=== PATIENT | male | born 1940 | race Caucasian/White ===

== ENCOUNTER → 2018-09-26 08:48 | Outpatient (CLI) | payer MEDICARE, BC ==
--- NOTE | 2018-10-01 13:33 | EC ---
PATIENT:TMAEKA CHAMBERS DATE OF SERVICE: 09/26/18 SEX: M MEDICAL RECORD: [id number] DATE OF : 44 LOCATION:[facility] AGE OF PATIENT: 77 ADMISSION DATE: 09/26/18 REFERRING PHYSICIAN: INTERPRETING PHYSICIAN: FABIANO ADAMES MD ECHOCARDIOGRAM REPORT ECHO CHARGES 4 ECHO COMPLETE Date: 09/26/18 CLINICAL DIAGNOSIS: H/O HTN ECHOCARDIOGRAPHIC MEASUREMENTS (adult normal given) AC root (d.<3.7cm) 3.3 cm LV Septum d (<1.2 cm> 1.5 cm Valve Excursion 0.6 cm LV Septum (systole) 1.9 cm Left Atria (s.<4.0cm> 4.3 cm LVPW d(<1.2cm) 1.2 cm RV (d.<2.3cm) 2.5 cm LVPW (sytole) 2.1 cm LV diastole(<5.6CM) 5.1 cm MV E-F(>70mm/sec) cm LV systole 2.5 cm LVOT Diameter 1.6 cm MV exc.(>10mm) cm Est.ejection fraction (50-75%) % DOPPLER: LVIT cm/sec A 108 cm/sec E 119 cm/sec LA cm/sec RVSP 46.0 mmHg LVOT 68.0 cm/sec AOP1/2T m/s Asc. Ao 324 cm/sec RVOT 67.0 cm/sec RA cm/sec PA 154 cm/sec AV Gradient Peak 42.0 mmHg AV Mean 23.0 mmHg AV Area 0.5 cm MV Gradient Peak 6.4 mmHg MV Mean 2.6 mmHg MV Area cm COMMENTS: OP - HC Agent Telegrapher: 1 JACOBY GILBERTOE Supervisor Transferring And Boxing: 3 Dr. Amador TAPE# PACS Pericardial Effusion N DATE OF SERVICE: Adequate 2D, color flow, spectral Doppler, and M-Mode. LVH is present. LV internal dimension is normal. Wall motion is normal. EF is greater than or equal to 55%. Aortic valve is calcified with restriction of leaflet motion. Calculated aortic valve area of 0.5 cm-squared putting this in the severe range. The left atrium is normal. Mitral valve shows no prolapse. Mild MR. Right-sided chambers grossly normal. Mild TR. TRANSINT:[id number] Voice Confirmation ID: [id number] DOCUMENT ID: [id number] ECHOCARDIOGRAM REPORT [id number] TAMEKA CHAMBERS,FABIANO Alvarez MD at 1333 CC: [id number] DICTATION DATE: 09/29/18 1307 ASSEMBLER LEATHER GOODS: 09/29/18 1412 DEP CLI 09/26/18 [place] [id number] [place] [id number]
== END | disposition home or self-care (01) ==
LOC: D.HCCARDIO 08:48
PROVIDERS: ATTEND Internal Medicine Interventional Cardiology
DX: I35.0 Nonrheumatic aortic (valve) stenosis (principal)

== ENCOUNTER → 2019-10-02 10:22 | Outpatient (CLI) | payer MEDICARE ==
--- NOTE | 2019-10-06 08:35 | EC ---
PATIENT:TAMEKA CHAMBERS DATE OF SERVICE: 10/02/19 SEX: M MEDICAL RECORD: [id number] DATE OF : 44 [facility] AGE OF PATIENT: 78 ADMISSION DATE: 10/02/19 REFERRING PHYSICIAN: INTERPRETING PHYSICIAN: FABIANO ADAMES MD ECHOCARDIOGRAM REPORT ECHO CHARGES 4 ECHO COMPLETE Date: 10/02/19 CLINICAL DIAGNOSIS: A-FIB/ H/O HTN ECHOCARDIOGRAPHIC MEASUREMENTS (adult normal given) AC root (d.<3.7cm) 3.0 cm LV Septum d (<1.2 cm> 1.5 cm Valve Excursion 0.5 cm LV Septum (systole) 1.8 cm Left Atria (s.<4.0cm> 4.5 cm LVPW d(<1.2cm) 1.4 cm RV (d.<2.3cm) 3.1 cm LVPW (sytole) 2.0 cm LV diastole(<5.6CM) 5.1 cm MV E-F(>70mm/sec) cm LV systole 2.8 cm LVOT Diameter 1.8 cm MV exc.(>10mm) cm Est.ejection fraction (50-75%) % DOPPLER: LVIT cm/sec A 111 cm/sec E 125 cm/sec LA cm/sec RVSP 47.0 mmHg LVOT 103 cm/sec AOP1/2T m/s Asc. Ao 442 cm/sec RVOT 66.0 cm/sec RA cm/sec PA 126 cm/sec AV Gradient Peak 78.2 mmHg AV Mean 42.0 mmHg AV Area 0.5 cm MV Gradient Peak 7.9 mmHg MV Mean 2.5 mmHg MV Area cm COMMENTS: OP - HC Marine Resource Economist: 1 JACOBY GILBERTOE Canteen Operator: 3 Dr. Amador TAPE# PACS Pericardial Effusion N DATE OF SERVICE: Adequate 2D, color flow imaging, spectral Doppler, and M-Mode. LVH is present. LV internal dimension is normal. Wall motion is normal. EF is greater than or equal to 55%. Aortic valve is calcified with restriction of leaflet motion. Peak gradient of almost 80 mmHg putting this in severe range. There is trivial AI with flow imaging. Left atrium is mildly dilated at 4.5 cm. Mitral valve shows no prolapse. Moderate MR. Right-sided chamber is grossly normal. Kxsh-to-fcokoabl TR. ECHOCARDIOGRAM REPORT [id number] TAMEKA CHAMBERS TRANSINT:[id number] Voice Confirmation ID: [id number] DOCUMENT ID: [id number] FABIANO ADAMES MD at 0835 CC: [id number] DICTATION DATE: 10/05/19 0843 POLISHER AND BUFFER: 10/05/19 1723 DEP CLI 10/02/19 [place] [id number] [place] [id number]
== END | disposition home or self-care (01) ==
LOC: D.HCCECHO 10:22
PROVIDERS: ATTEND Internal Medicine Interventional Cardiology
DX: I35.0 Nonrheumatic aortic (valve) stenosis (principal)

== ENCOUNTER 2019-12-17 11:35 | Outpatient (CLI) | payer MEDICARE ==
[~2019-12-17] VITALS: Ht 198.1 cm; Wt 90.5 kg
--- NOTE | ~2019-12-17 | HEMODYNAMI ---
PATIENT:TAMEKA CHAMBERS MEDICAL RECORD: [id number] : 44 LOCATION:D.CAT ADMISSION DATE: 12/17/19 Generatedon:12/17/201914:59 Patient name: TAMEKA CHAMBERS Patient #: [id number] SSN: [id number] : 1940 Date of study: 12/17/2019 Page: Of Hemodynamic Procedure Report Patient Data Patient Demographics First Name: TAMEKA Gender: Male Last Name: TRISH : 1940 Middle Initial: L Age: 79 year(s) Patient #: [id number] Race: Unknown SSN: [id number] Additional ID: [id number] Contact details Address: [place] [address] State: [place] City: [place] Zip code: [address] Past Medical History Allergies Allergen Reaction Date Comments Reported Other allergy 12/17/2019 pcn Admission Admission Data Admission Date: 12/17/2019 Admission Time: 11:35 Arrival Date: 12/17/2019 Arrival Time: 0:00 Insurance Payor: Medicare Height (in.): 77.95 BSA: 2.25 (m2) Height (cm.): 198 BMI: 22.96 (kg/m2) Weight (lbs.): 198.42 Weight (kg.): 90 Lab Results Lab Result Date: 12/17/2019 Lab Result Time: 0:00 Biochemistry Name Units Result Min Max BUN mg/dl 32 --(----)-* 7 18 Creatinine mg/dl 2.1 --(----)-* 0.6 1.3 CBC Name Units Result Min Max Hemoglobin g/dl 14.3 --(*---)-- 13.5 17.5 Procedure Procedure Types Cath Procedure Diagnostic Procedure [facility] w/Coronaries Sedation Charges Moderate Sedation up to 15 minutes Procedure Description Procedure Date Procedure Date: 12/17/2019 Procedure Start Time: 14:36 Procedure End Time: 14:56 Procedure Staff Name Function Jonny Tran MD Performing Physician Chanel Medrano RT Monitor Navin Gutierrez RN Nurse Juli Brar RT Scrub Procedure Data Cath Procedure Fluoroscopy Diagnostic fluoroscopy Total fluoroscopy Time: 5.6 time: 5.6 min min Diagnostic fluoroscopy Total fluoroscopy dose: 522 dose: 522 mGy mGy Contrast Material Contrast Material Type Amount (ml) Isovue 300 67 Entry Location Entry Primary Successful Side Size Upsize Upsize Entry Closure Campbell ccessful Closure Location (Fr) 1 (Fr) 2 (Fr) Remarks Device Remarks Radial Right 6 Fr Mechanical artery Short Compression Estimated blood loss: 10 ml Diagnostic catheters Device Type Used For End Catheter Placement DIAGNOSTIC Mohall 110cm 5 Procedure Fr catheter ([id number]) DIAGNOSTIC AR MOD 5Fr Procedure Catheter ([id number]) Procedure Complications No complications Procedure Medications Medication Administration Route Dosage Oxygen etCO2 Nasal cannula 2 l/min Lidocaine 2% added to field 20 Heparin Flush Bag added to field 2 bags (1000units/500ml NS) 0.9% NaCl I.V. 100 ml/hr Versed I.V. 1 mg Fentanyl I.V. 50 mcg Versed I.V. 1 mg Fentanyl I.V. 50 mcg Hemodynamics Rest BSA: 2.25 (m2) HGB: 14.3 (g/dl) O2 Consumption: Estimated: 239.78 (ml/min) O2 Co nsumption indexed: Estimated:106.57 (ml/min/m) Heart Rate: 49 (bpm) Pressure Samples Time Site Value (mmHg) Purpose Heart Use Rate(bpm) 14:52 LV 181/-3,9 Snapshot 45 14:53 AO 142/36(72) Pullback 48 14:53 LV 177/0,9 Pullback 48 Gradients Valve Time Site 1 Site 2 Mean SEP/DFP Peak To Heart Use (mmHg) (sec/min) Peak Rate (mmHg) (bpm) Aortic 14:53 LV AO 57 17 35 48 177/0,9 142/36(72) Calculations Valve P-P Mean Valve Index Valve Source Name Gradient Area Flow (cm2) Aortic 35 57 35 57 Snapshots Pre Cath Intra NCS Post Cath Vital Signs Time Heart Resp SPO2 etCO2 NIBP (mmHg) Rhythm Pain Sedation Rate (ipm) (%) (mmHg) Status Level (bpm) 14:24:19 98 13 98 35.9 160/79(127) NSR 0 (11) 10(A) , No pain 14:28:49 50 17 96 26.1 155/67(121) NSR 0 (11) 10(A) , No pain 14:33:15 48 14 98 1.4 145/67(118) NSR 0 (11) 10(A) , No pain 14:37:41 46 14 94 38.1 143/68(117) NSR 0 (11) 9(A) , No pain 14:42:06 45 13 98 30.7 147/66(114) NSR 0 (11) 9(A) , No pain 14:46:36 45 14 97 38.9 114/57(90) NSR 0 (11) 9(A) , No pain 14:51:47 44 13 97 36.6 123/58(103) NSR 0 (11) 9(A) , No pain 14:56:07 44 14 97 41.1 132/58(104) NSR 0 (11) 10(A) , No pain Medications Time Medication Route Dose Verified Delivered Reason Notes Eff ectiveness by by 14:23:21 Oxygen etCO2 2 Jonny Buffie used for Nasal l/min St Jason Gutierrez RN procedure cannula 14:23:30 Lidocaine 2% added 20ml Jonyn Jonny for local to vial [facility] anesthetic field MD SUE 14:23:36 Heparin Flush added 2 Jonny Jonny used for Bag to bags [facility] procedure (1000units/500ml field MD SUE NS) 14:23:46 0.9% NaCl I.V. 100 Jonny Buffie Per ml/hr St Jason Gutierrez RN physician 14:32:55 Versed I.V. 1 mg Jonny Samuelie for [facility] Jason Gutierrez RN sedation 14:33:02 Fentanyl I.V. 50 Jon[address] for mcg [address] Jason Gutierrez RN sedation 14:41:07 Versed I.V. 1 mg Jonny Buffie for [facility] Jason Gutierrez RN sedation 14:41:10 Fentanyl I.V. 50 Jon[address] Buff[address] for mcg [facility] Jason Gutierrez RN sedation Procedure Log Time Note 14:11:46 Arrival Date: 12/17/2019 12:00:00 AM 14:13:41 Patient Height : 77.95 inches 14:13:45 Patient Weight : 198.42 lbs 14:13:54 Insurance Payor : Medicare 14:14:45 Lab Result : Hemoglobin 14.3 g/dl 14:14:45 Lab Result : Creatinine 2.1 mg/dl 14:14:45 Lab Result : BUN 32 mg/dl 14:15:35 Diagnostic Cath Status : Elective 14:15:46 Procedure Status Elective Heart Cath (OP). 14:15:48 Navin Gutierrez RN sent for patient. Start room use. 14:15:50 Time tracking: Regular hours (M-F 7:00 - 5:00) 14:15:54 Plan of Care:Hemodynamics will remain stable., Cardiac rhythm will remain stable., Comfort level will be maintained., Respiratory function will remain adequate., Patient/ family verbilizes understanding of procedure., Procedure tolerated without complication., Recovers from procedure without complications.. 14:15:59 Patient received from Pre/Post Procedure Room to CCL 1 Alert and oriented. Tansferred to table in Supine position. 14:16:01 Warm blankets applied, and francisca hugger turned on for patient comfort. 14:16:01 Correct patient and procedure confirmed by team. 14:16:02 ECG and BP/O2 sat monitors applied to patient. 14:16:30 H&P Date Dictated: 12/07/2019 Within 30 days and on chart., H&P Addendum completed by physician on day of procedure. (MUST COMPLETE FOR ALL OUTPATIENTS). 14:16:31 Pre-procedure instructions explained to patient. 14:16:35 Family in waiting room. 14:16:37 Patient NPO since Midnight. 14:16:58 Patient allergic to Other allergypcn 14:17:00 Is the patient allergic to Iodine/contrast media? No. 14:17:04 Was the patient premedicated? Yes 14:17:09 Is patient on blood thinner?No 14:23:10 Vital chart was started 14:23:21 Oxygen 2 l/min etCO2 Nasal cannula was administered by Navin Gutierrez RN; used for procedure; Verbal order read back and verified. 14:23:30 Lidocaine 2% 20ml vial added to field was administered by Jonny Tran MD; for local anesthetic; Verbal order read back and verified. 14:23:36 Heparin Flush Bag (1000units/500ml NS) 2 bags added to field was administered by Jonny Tran MD; used for procedure; Verbal order read back and verified. 14:23:46 0.9% NaCl 100 ml/hr I.V. was administered by Navin Gutierrez RN; Per physician; Verbal order read back and verified. 14:30:36 Patient diabetic? Yes. 14:30:38 If diabetic: On Metformin? No 14:30:42 Snore? Yes 14:30:44 Sleep apnea? No 14:30:49 Is patient on blood thinner?Yes 14:31:06 eloquis on 12/15/19 14:31:18 Patient pain scale 0/10 ?. 14:31:27 IV patent on arrival in left forearm with 0.9% NaCl at [facility]. 14:31:30 Lab results completed and on chart. 14:31:39 Right groin area was prepped with chlora-prep and draped in sterile fashion 14:31:44 Right Radial area was prepped with chlora-prep and draped in sterile fashion 14:31:46 Alarms reviewed by R. N. 14:31:46 Sharps counted by scrub and verified by R.N. 14:31:48 Physician paged 14:31:48 Physician arrived 14:31:49 --------ALL STOP TIME OUT------ 14:31:49 Final Timeout: patient, procedure, and site verified with staff and physician. All members of the team are in agreement. 14:31:55 Right Radial & Right Groin site verified by team. 14:31:59 Fire Safety Assessment: A--An alcohol-based skin anteseptic being used preoperatively., C--Open oxygen or nitrous oxide is being used., D--An ESU, laser, or fiber-optic light is being used. 14:32:03 Physical assessment completed. ASA score P 2 - A patient with mild systemic disease as per Jonny Tran MD. 14:32:40 3b) 30-44 Moderately reduced kidney function. 14:32:45 Maximum allowable contrast dose (3.7 X eGFR X 0.75)92 ml. 14:32:51 Sedation plan: IV Moderate Sedation Medication:Versed, Fentanyl 14:32:55 Versed 1 mg I.V. was administered by Navin Gutierrez RN; for sedation; Verbal order read back and verified. 14:33:02 Fentanyl 50 mcg I.V. was administered by Buffie Gutierrez RN; for sedation; Verbal order read back and verified. 14:33:04 Use device set Radial Dx or PCI 14:33:06 ACIST Syringe (96062) opened to sterile field. 14:33:07 Medline Cath Pack ([id number]) opened to sterile field. 14:33:07 Bag Decanter (2002S) opened to sterile field. 14:33:08 ACIST Hand Control (25237) opened to sterile field. 14:33:09 ACIST Manifold (99442) opened to sterile field. 14:33:09 Tegaderm 4 x 4 (1626W) opened to sterile field. 14:33:11 MBrace Wrist Support (241727644) opened to sterile field. 14:33:15 EMERALD Guide Wire (150-458) opened to sterile field. 14:33:16 SHEATH 6FR RAIN (0551364) opened to sterile field. 14:33:25 Baseline sample Acquired. 14:33:27 Full Disclosure recording started 14:35:47 Zero performed for pressure channel P1 14:36:02 Zero performed for pressure channel P1 14:36:40 Procedure started. 14:36:56 Local anesthetic to right radial artery with Lidocaine 2% by Jonny Tran MD.INITIAL ACCESS ONLY 14:41:07 Versed 1 mg I.V. was administered by Navin Gutierrez RN; for sedation; Verbal order read back and verified. 14:41:10 Fentanyl 50 mcg I.V. was administered by Navin Gutierrez RN; for sedation; Verbal order read back and verified. 14:42:28 A 6 Fr Short sheath was inserted into the Right Radial artery 14:43:13 A DIAGNOSTIC Mohall 110cm 5 Fr catheter (428636) was advanced over the wire and used for Procedure. 14:43:36 LCA angiography performed. 14:46:42 A DIAGNOSTIC AR MOD 5Fr Catheter (407769Q) was advanced over the wire and used for Procedure. 14:46:54 RCA angiography performed. 14:48:04 ZEPHYR REGULAR TR BAND (800555) opened to sterile field. 14:49:59 ROADRUNNER .035 260 glide wire (M64250) opened to sterile field. 14:53:38 LV gram done using SAXENA 14:53:47 EF : 55 % 14:53:50 LV hemodynamics recorded. 14:53:51 Catheter removed. 14:54:04 Sheath removed intact; hemostasis achieved with Mechanical Compression to the Right Radial artery. 14:54:46 Procedure ended.(Physican Out) 14:54:59 Fluoroscopy time 05.60 minutes. 14:55:04 Fluoroscopy dose: 522 mGy 14:55:04 Flurop Dose total: 522 14:55:10 Dose Area Product 73661 mGy/cm. 14:55:15 Contrast amount:Isovue 300 67ml. 14:55:17 Maximum allowable dose exceeded? No. 14:55:20 [place] band inflated with 10cc of air. 14:55:21 Insertion/operative site no bleeding no hematoma. 14:55:28 Post right radial artery:stable 14:55:37 Post-procedure physical assessment completed. ASA score P 3 - A patient with severe systemic disease as per Jonny Tran MD. 14:55:40 Post procedure rhythm: unchanged. 14:55:44 Estimated blood loss: 10 ml 14:55:46 Post procedure instruction explained to patient.Patient verbalizes understanding. 14:55:57 Procedure type changed to Cath procedure, Diagnostic procedure, LHC, C w/Coronaries, Sedation Charges, Moderate Sedation up to 15 minutes 14:55:59 Procedure and supply charges have been captured, reviewed, submitted and are correct. 14:56:16 Procedure Complication : No complications 14:56:19 Vital chart was stopped 14:56:30 [facility] Findings: MVD- CABG consult 14:56:32 Operative report dictated upon procedure completion. 14:56:35 Report given to Pre/Post Procedure Room. 14:56:39 Patient transfered to Pre/Post Procedure Room with Stretcher. 14:56:41 Procedure ended. 14:56:41 Full Disclosure recording stopped 14:56:45 End room use (Document Last) 14:56:59 End room use (Document Last) 14:57:30 End room use (Document Last) Device Usage Item Name Manufacture Quantity Catalog Hospital Part Current Minima l Lot# / Number Charge Number Stock Stock Serial# Code MYNOR Maldonadoist 1 57342 965436 718847 342640 20 Syringe Livekick (62794) [employer] Inc Medline Medline 1 [id number] 986699 56602 319761 5 Cath Pack ([id number]) Bag Microtek 1 290148 24975 159144 5 DecMWI Inc. () ACIST Hand Acist 1 20449 164970 635553 128832 5 Control Medical (53165) Systems Inc ACIST Acist 1 05147 144170 047232 249744 5 Manifold Medical (00733) Systems Inc Tegaderm 4 3M 1 1626W 476874 938639 170434 5 x 4 (1626W) MBrace Advanced 1 140-0250-00 304753 11203 318700 5 Wrist Vascular Support Dynamics ([id number]) EMERALD Cardinal 1 502-455 966357 150267 295965 5 Guide Wire Health (502455) SHEATH 6FR Cardinal 1 4031992 386215 1945365 720628 5 [facility] Health (0086206) DIAGNOSTIC Terumo 1 40-1443 304657 868409 600114 5 Mohall 110cm 5 Fr catheter (432503) DIAGNOSTIC Cardinal 1 [id number] 811833 149048 400035 15 AR MOD 5Fr Health Catheter (392683O) ZEPHYR Cardinal 1 890406 009785 7761719 379612 5 REGULAR TR Health BAND (658482) [facility] 1 L32360 907734 198383 973258 5 .035 260 glide wire (Z30875) Signature Audit [place] Stage Time Signature Unsigned Intra-Procedure 12/17/2019 Chanel Medrano 2:56:59 PM RT(R) Intra-Procedure 12/17/2019 Navin Gutierrez RN 2:57:30 PM Intra-Procedure 12/17/2019 Jonny Hanson 2:59:05 PM Jason SUE [address] [address]
[2019-12-17] MEDS ORDERED: NORVASC5 MG PO (12:15)
[2019-12-17] MEDS ORDERED: STOOL SOFTENER100 M1 PO (12:15)
[2019-12-17] MEDS ORDERED: NEURONTIN 300300 MG PO (12:15)
[2019-12-17] MEDS ORDERED: ELIQUIS5 MG PO (12:16)
[2019-12-17] MEDS ORDERED: CLARITIN 10 MG10 MG PO (12:16)
[2019-12-17] MEDS ORDERED: PACERONE200 MG PO (12:16)
[2019-12-17] MEDS ORDERED: ULTRAM50 MG PO (12:17)
[2019-12-17] MEDS ORDERED: MIRALAX17 GM PO (12:17)
[2019-12-17] MEDS ORDERED: LIPITOR80 MG PO (12:17)
[2019-12-17] MEDS ORDERED: FLOMAX0.4 MG PO (12:18)
[2019-12-17 12:41] VITALS: BP 152/61; Ht 198.1 cm; Wt 90.5 kg
[2019-12-17] MEDS ORDERED: VOLTAREN75 MG PO (12:51)
[2019-12-17 12:53] LABS: BASOPHILS 0 % (0-2); EOSINOPHILS 2.7 % (0-7); HEMATOCRIT 43.6 % (42.0-54.0); HEMOGLOBIN 14.3 g/dL (13.5-17.5); LYMPHOCYTES 20.7 % (15-50); MCH 32.5 pg (26.0-34.0); MCHC 32.8 g/dL (31.0-37.0); MCV 99.1 fL (80.0-100.0); MEAN PLATELET VOLUME 11.4 fL (7.4-10.4); MONOCYTES 9.3 % (2-11); NEUTROPHILS 67.3 % (40-80); PLATELET COUNT 107 10x3/uL (130-400); RDW 13.3 % (11.5-14.5); WBC 4.1 10x3/uL (4.8-10.8)
[2019-12-17 12:57] LABS: ANION GAP 11.2 mmol/L (8-16); CARBON DIOXIDE 28.5 mmol/L (21.0-32.0); CHOL - HDL RATIO 1.7 ratio (2.3-4.9); CREATININE - SERUM 2.1 mg/dL (0.6-1.3); LDL-HDL RATIO 0.6 ratio (1.5-3.5); POTASSIUM - SERUM 4.7 mmol/L (3.5-5.1)
--- NOTE | 2019-12-17 15:08 | NUR ---
PT ARRIVED BY STRETCHER. PLACED ON MONITORS. ASSESSMENT COMPLETED. FAMILY AT BEDSIDE. CALL LIGHT WITHIN REACH. DR. ADAMES AT BEDSIDE UPDATING PT AND PT'S FAMILY.
--- NOTE | 2019-12-17 15:23 | NUR ---
RIGHT WRIST Z BAND IN PLACE. NO BLEEDING/HEMATOMA NOTED. CALL LIGHT WITHIN REACH. VSS AT THIS TIME. FAMILY AT BEDSIDE.
--- NOTE | 2019-12-17 15:55 | NUR ---
2cc OF AIR REMOVED FROM Z BAND. NO BLEEDING/HEMATOMA NOTED. CALL LIGHT WITHIN REACH. VSS. FAMILY AT BEDSIDE.
--- NOTE | 2019-12-17 16:10 | NUR ---
4cc OF AIR REMOVED FROM Z BAND. NO BLEEDING/HEMATOMA NOTED. PT SET UP WITH SANDWICH TRAY AND DRINK AT THIS TIME. FAMILY AT BEDSIDE TO ASSIST. PT DENIES PAIN/NAUSEA. VSS. NO OTHER NEEDS AT THIS TIME.
--- NOTE | 2019-12-17 16:21 | NUR ---
REMAINDER OF AIR REMOVED FROM Z BAND. NO BLEEDING/HEMATOMA NOTED. RIGHT WRIST BRACE IN PLACE. CALL LIGHT WITHIN REACH. NO NEEDS AT THIS TIME.
--- NOTE | 2019-12-17 16:35 | NUR ---
PIV D/C'D WITH CATH TIP INTACT. TOLERATED WELL. RIGHT WRIST Z BAND REMOVED AND DRESSING APPLIED. NO BLEEDING/HEMATOMA NOTED. PT INSTRUCTED TO GET UP AND DRESSED AT THIS TIME. FAMILY AT BEDSIDE TO ASSIST.
--- NOTE | 2019-12-17 16:50 | NUR ---
DISCUSSED DISCHARGE INSTRUCTIONS WITH PT AND PT'S . THEY VOICED UNDERSTANDING. PT AMBULATED TO RESTROOM AND VOIDED WITHOUT DIFFICULTY. STEADY GAIT NOTED.
--- NOTE | 2019-12-17 17:00 | NUR ---
RIGHT WRIST DRESSING C/D/I. NO S/S OF HEMATOMA NOTED. PT TAKEN DOWN TO VEHICLE BY WHEELCHAIR. NO S/S OF DISTRESS NOTED. ALL BELONGINGS AND PAPERWORK IN HAND.
--- NOTE | 2019-12-21 08:06 | OP ---
PATIENT NAME: TAMEKA CHAMBERS MEDICAL RECORD: [id number] :44 LOCATION:D.CAT ADMISSION DATE: SURGEON: FABIANO ADAMES MD DATE OF OPERATION: 12/17/2019 PROCEDURE: Left heart catheterization, selective coronary angiography, right femoral artery approach. CATHETERS: A 5-Turkmen sheath, 5/4 left and right Dom, 5/4 pig. The procedure was well tolerated. The patient was returned to [facility]. Sheath was removed. TR band was placed. FINDINGS: Left ventriculography in 30-degree SAXENA view: Normal wall motion. Normal systolic function. Greater than 60 mmHg gradient across the aortic valve. CORONARY ANATOMY: LEFT MAIN: Left main is free of disease. LAD: Has a mid portion stenosis of 80%, EVANGELIST flow 3 distally. CIRCUMFLEX: Free of disease. RIGHT CORONARY ARTERY: Dominant and free of disease. IMPRESSION: Critical . IMPRESSION: Single vessel coronary artery disease. Dr. Silverio is consulted to rule out CABG. TRANSINT:[id number] Voice Confirmation ID: [id number] DOCUMENT ID: [id number] FABIANO ADAMES MD at 0806 CC: [id number] DICTATION DATE: 12/17/19 1504 ELEMENTARY SPECIAL EDUCATION TEACHER: 12/17/19 2249 DEP CLI 12/17/19 [place] [id number] [place] [address]
== END 2019-12-17 17:00 | disposition home or self-care (01) ==
LOC: D.CATH 11:35
PROVIDERS: ATTEND Internal Medicine Interventional Cardiology
DX: I25.10 Atherosclerotic heart disease of native coronary artery without angina pectoris (principal); E11.9 Type 2 diabetes mellitus without complications; I10 Essential (primary) hypertension